=== PATIENT | female | born 1985 | race African-American/Black ===

== ENCOUNTER 2025-10-25 07:32 | Day surgery (SDC) | payer OTHER ==
[~2025-10-25] VITALS: Ht 154.9 cm; Wt 73.1 kg
[~2025-10-25 07:32] MED LIST: IBUP-1114 PO
[2025-10-25] MEDS: LR 1,000 ML IV SCH (08:00)
[2025-10-25] MEDS: MIDAZOLAM INJ 2 MG/2 ML VIAL IV PRN (09:03)
[2025-10-25] MEDS: dexAMETHasone 10 MG/1 ML VIAL PRES.FREE PN ONE (09:10)
[2025-10-25] MEDS: LIDOCAINE 1% SDV 5 ML VIAL PN ONE (09:10)
[2025-10-25] MEDS ORDERED: LIDOCAINE 2% 100 MG/5 ML SDV (FOR ANES.) As Ordered ONE (09:15)
[2025-10-25] MEDS ORDERED: dexAMETHasone 4 MG/ML 1 ML VIAL As Ordered ONE (09:16)
[2025-10-25] MEDS ORDERED: ROCURONIUM BROMIDE 50MG/5ML VIAL As Ordered ONE (09:16)
[2025-10-25] MEDS ORDERED: ACETAMINOPHEN 1000MG/100ML IV BAG As Ordered ONE (09:18)
[2025-10-25] MEDS ORDERED: ONDANSETRON 4MG/2ML VIAL As Ordered ONE (09:19)
[2025-10-25] MEDS ORDERED: KETOROLAC 30 MG/ML 1 ML VIAL As Ordered ONE (09:19)
[2025-10-25] MEDS ORDERED: TRANEXAMIC ACID 100 MG/ML 10ML VIAL As Ordered ONE (09:32)
[2025-10-25] MEDS: ceFAZolin SOD 2 GM IV ONCE IV ONE (10:10)
[2025-10-25] MEDS: TRANEXAMIC ACID 100 MG/ML 10ML VIAL IV ONE (10:15)
[2025-10-25] MEDS ORDERED: LABETALOL 100 MG/20 ML VIAL As Ordered ONE (10:29)
[2025-10-25] MEDS: EPINEPHrine 1 MG/ML INJ 30 ML MD-VIAL As Ordered ONE (10:30)
[2025-10-25] MEDS: VANCOMYCIN 1000MG/20ML VIAL As Ordered ONE (10:54)
[2025-10-25] MEDS: LIDOCAINE 1% SDV 30 ML VIAL As Ordered ONE (10:56)
[2025-10-25] MEDS ORDERED: SUGAMMADEX SODIUM 200 MG/2 ML VIAL As Ordered ONE (10:59)
[2025-10-25] MEDS ORDERED: LR 1,000 ML IV SCH (11:10)
[2025-10-25] MEDS: ONDANSETRON 4MG/2ML VIAL IV PRN (11:47)
[2025-10-25] MEDS: HYDROMORPHONE HCL 0.5 MG/0.5 ML SYRINGE IV PRN (11:50)
[2025-10-25 13:05] VITALS: BP 112/53; TEMP 96.6; O2SAT 99
== END 2025-10-25 13:25 | disposition home or self-care (01) ==
LOC: M SDC 07:32
PROVIDERS: ATTEND Orthopaedic Surgery
DX: M75.21 Bicipital tendinitis, right shoulder (principal); M19.011 Primary osteoarthritis, right shoulder
CPT/HCPCS: 23120; 23430; 64415; 73020; 81025; C1713; J0131; J0165; J0665; J0688; J1100; J1171; J1885; J1920; J2250; J2405; J3010; J3373